=== PATIENT | male | born 1950 | race Caucasian/White ===

== ENCOUNTER 2019-09-04 14:57 | Observation (INO) ==
[2019-09-04] MEDS ORDERED: TRANEXAMIC ACID 1,000 MG/10 ML VIAL IV ONE (15:28)
[2019-09-04 15:53] LABS: POC Blood Urea Nitrogen 29 mg/dl (8-23); POC CO2 24 mmol/L (22-30); POC Calcium, Ionized 1.15 mmol/L (1.16-1.32); POC Chloride 96 mmol/L (96-108); POC Creatinine 1.7 mg/dl (0.7-1.2); POC Glucose, Random 200 mg/dL (70-105); POC Potassium 4.3 mmol/L (3.3-5.1); POC Sodium 131 mmol/L (133-145)
[2019-09-04] MEDS ORDERED: 0.9 % SODIUM CHLORIDE 1,000 ML IV ONE (16:24)
[2019-09-04 16:37] LABS: Basophils # (Auto) 0.01 K/mcL (0.00-0.30); Basophils % (Auto) 0.1 % (0.0-2.0); Eosinophils # (Auto) 0 K/mcL (0.00-0.70); Eosinophils % (Auto) 0 % (0.0-7.0); Granulocytes % (Auto) 96.6 % (38.0-78.0); Hematocrit 36.5 % (40.1-51.0); Hemoglobin 12.4 g/dL (13.7-17.5); Lymphocytes # (Auto) 0.25 K/mcL (1.50-4.80); Mean Cell Volume 90.6 fL (80.0-100.0); Mean Platelet Volume 9.2 fL (7.4-10.4); Monocytes # (Auto) 0.16 K/mcL (0.10-0.90); Monocytes % (Auto) 1.3 % (1.0-12.0); Platelet Count 270 K/mcL (140-440); RBC 4.03 M/mcL (4.63-6.08); WBC 12.3 K/mcL (4.50-11.00)
[2019-09-04 16:52] LABS: ALT/SGPT 14 U/l (0-40); AST/SGOT 14 U/l (0-37); Albumin 3.9 gm/dL (3.2-5.2); Albumin/Globulin Ratio 1.7 (1.0-2.3); Alkaline Phosphatase 63 U/L (39-117); Bilirubin,Total 0.3 mg/dL (0.0-1.0); Calcium 8.8 mg/dl (8.6-10.4); Carbon Dioxide 22 mmol/L (22-30); Globulin 2.3 gm/dL (2.2-3.7); Glomerular Filtration Rate 44; Glucose 211 mg/dL (70-105)
[2019-09-04 16:55] LABS: Blood Urea Nitrogen 29 mg/dl (8-23); Chloride 95 mmol/L (96-108)
--- NOTE | 2019-09-04 17:00 | Emergency Department Note ---
General Adult HPI - General Chief complaint: Bleeding Other Stated complaint: bleeding from penis/cath Time Seen by Provider: 09/04/19 15:05 Source: patient Mode of arrival: wheelchair Limitations: no limitations - History of Present Illness HPI Narrative: 69-year-old male had surgery today with Dr. Robles. He returns for penile bleeding after transurethral bladder cancer removal. Please see Dr. Robles's note for complete course. He is not on a blood thinner - Related Data Home Medications Medication Instructions Recorded Confirmed coenzyme Q10 10 mg capsule 10 mg PO QDAY cap 08/18/19 09/04/19 levothyroxine 175 mcg tablet 175 mcg PO QDAY 08/18/19 09/04/19 magnesium oxide 200 mg PO QDAY 08/18/19 09/04/19 olmesartan 40 mg tablet 40 mg PO QDAY 08/18/19 09/04/19 Previous Rx's Medication Instructions Recorded Cephalexin [Keflex] 500 mg PO QID #10 cap 09/04/19 HYDROcodone/APAP 5/325MG [[place] 1 tab PO Q6HP PRN #15 tab 09/04/19 5-325Mg] Allergies Allergy/AdvReac Type Severity Reaction Status Date / Time No Known Drug Allergies Allergy Verified 09/04/19 15:01 Past Medical History - Past Medical History Attestation: Yes: The following information was validated with the patient. PMFSH Narrative: Family History (Last Reviewed 08/27/19 @ 11:28 by Erika Freitas RN) Other Cancer HTN (hypertension) Heart attack Prostate cancer Medical History (Last Reviewed 08/27/19 @ 11:28 by Erika Freitas RN) Hydronephrosis (Chronic) Sleep apnea (Chronic) Hypertension (Chronic) Hypothyroidism (Chronic) Goiter (Chronic) Malignant tumor of thyroid gland (Chronic) Blood in urine (Chronic) Tachycardia (Chronic) Benign prostatic hyperplasia (Chronic) Metabolic syndrome X (Chronic) Renal insufficiency (Chronic) Benny hematuria (Chronic) Mass (Chronic) Past Surgical History (Last Reviewed 08/27/19 @ 11:28 by Erika Freitas RN) History of colonoscopy (Chronic ~2018) History of thyroid surgery (Chronic ~2006) Source: old records reviewed Surgical history ED: Reports: other (Bladder cancer removal) - Social History smoking status: Never smoker Physical Exam Patient is alert oriented normocephalic. Heart is regular rate and rhythm no murmur appreciated. Lungs are clear to auscultation bilaterally without wheezes rales rhonchi or respiratory distress. He has a Jarvis catheter in place with reddish urine in the tube. Bladder irrigation is ongoing Limitations: no limitations Course Vital Signs Temperature 97.7 F 09/04/19 14:57 Pulse Rate 101 H 09/04/19 14:57 Respiratory Rate 16 09/04/19 14:57 Blood Pressure 178/91 09/04/19 14:57 Pulse Oximetry (%) 98 09/04/19 14:57 Temperature 97.7 F 09/04/19 14:57 Pulse Rate 102 H 09/04/19 16:36 Respiratory Rate 16 09/04/19 14:57 Blood Pressure 165/92 09/04/19 16:31 Pulse Oximetry (%) 99 09/04/19 16:36 Medical Decision Making - Lab Data Lab results reviewed: Yes I reviewed the patient's lab results. Result diagrams: 09/04/19 15:47 09/04/19 15:47 Lab Results 09/04/19 09/04/19 Range/Units 15:47 15:47 WBC 12.3 H (4.50-11.00) K/mcL RBC 4.03 L (4.63-6.08) M/mcL Hgb 12.4 L (13.7-17.5) g/dL Hct 36.5 L (40.1-51.0) % POC Hct 38.0 L (41.0-55.0) % MCV 90.6 (80.0-100.0) fL MCH 30.8 (26.0-34.0) pg MCHC 34.0 (31.0-36.0) g/dL RDW 12.0 (11.5-14.5) % Plt Count 270 (140-440) K/mcL MPV 9.2 (7.4-10.4) fL Gran % 96.6 H (38.0-78.0) % Lymph % (Auto) 2.0 L (15.5-49.0) % [place] % (Auto) 1.3 (1.0-12.0) % Eos % (Auto) 0 (0.0-7.0) % Baso % (Auto) 0.1 (0.0-2.0) % Gran # 11.83 H (1.80-8.00) K/mcL Lymph # (Auto) 0.25 L (1.50-4.80) K/mcL [place] # (Auto) 0.16 (0.10-0.90) K/mcL Eos # (Auto) 0 (0.00-0.70) K/mcL Baso # (Auto) 0.01 (0.00-0.30) K/mcL POC Sodium 131 L (133-145) mmol/L Sodium 131 L (133-145) mmol/L POC Potassium 4.3 (3.3-5.1) mmol/L Potassium 4.6 (3.3-5.1) mmol/L POC Chloride 96 (96-108) mmol/L Chloride 95 L (96-108) mmol/L Carbon Dioxide 22 (22-30) mmol/L POC Total CO2 24 (22-30) mmol/L Anion Gap 14.0 (8-16) POC BUN 29 H (8-23) mg/dl BUN 29 H (8-23) mg/dl Creatinine 1.6 H (0.7-1.2) mg/dl POC Creatinine 1.7 H (0.7-1.2) mg/dl GFR Calculation 44 Glucose 211 H (70-105) mg/dL POC Glucose 200 H (70-105) mg/dL Calcium 8.8 (8.6-10.4) mg/dl POC WB Ioniz Calcium 1.15 L (1.16-1.32) mmol/L Total Bilirubin 0.3 (0.0-1.0) mg/dL AST 14 (0-37) U/l ALT 14 (0-40) U/l Alkaline Phosphatase 63 (39-117) U/L Total Protein 6.2 (5.9-8.4) gm/dL Albumin 3.9 (3.2-5.2) gm/dL Globulin 2.3 (2.2-3.7) gm/dL Albumin/Globulin Ratio 1.7 (1.0-2.3) Disposition Pt seen by CENTRAL SERVICES TECH/PA only: No Clinical Impression: Postoperative hemorrhage Qualifiers: Surgical complication system/body Area: genitourinary Procedure type: genitourinary Qualified Code(s): N99.820 - Postprocedural hemorrhage of a genitourinary system organ or structure following a genitourinary system procedure Summary: Dr. Robles was notified when the patient come to the ER and so he had already seen the patient by the time I came in the room. He asked for some tranexamic acid which was ordered. Labs are ordered as above. I briefly reviewed the situation and examined the patient Dr. Robles evaluated the patient and irrigated his bladder. He decided to admit the patient for observation. He will write orders Disposition: Xfer As Outpt/Obs ([facility]) Condition: Fair Referrals: No,PCP [Primary Care Provider] - Santana Robles MD [Physician] -
--- NOTE | 2019-09-04 17:40 | History and Physical Report ---
DATE OF ADMISSION: 09/04/2019 HISTORY OF PRESENT ILLNESS: Mr. Esqueda is a 69-year-old gentleman who has bladder cancer. He was taken to the operating room today and a TURBT was performed with mitomycin. Postoperatively, he was having bleeding, but was sent home from same day surgery. He continued to clot off his catheter and he went to the emergency room. While in the emergency room, I met him and had to irrigate his catheter. He is still having bleeding despite tranexamic acid and will admit to the hospital for overnight observation. PAST MEDICAL HISTORY: Significant for hydronephrosis, hypertension, hypothyroidism, tachycardia, and BPH. PAST SURGICAL HISTORY: Colonoscopy, thyroid surgery, and TURBT. FAMILY HISTORY: Cancer, hypertension, and prostate cancer. SOCIAL HISTORY: , works as a technical trainer, never smoked. He lives with his and is traveling by . MEDICATIONS: Synthroid, magnesium oxide, and olmesartan. ALLERGIES: NONE. REVIEW OF SYSTEMS: CARDIAC: Denies any chest pain. RESPIRATORY: No wheezing, coughing, or asthma. PSYCHOLOGICAL: No depression or mood swings. The rest of a 12-point review of systems is negative. PHYSICAL EXAMINATION: GENERAL: This is a pleasant gentleman, in slight distress. VITAL SIGNS: As listed per intake notes. HEENT: Atraumatic, normocephalic. Extraocular movements are intact. HEART: Regular rate and rhythm. LUNGS: Clear to auscultation. ABDOMEN: Soft, nontender. GENITOURINARY: Scrotum without lesion. Epididymides without cysts. Testes normal size and consistency. Penis is circumcised. Prostate 30 grams, smooth. Seminal vesicles without tenderness. Anus and perineum are normal. Rectum has good sphincter tone. LYMPHATIC: No adenopathy in neck or groin. SKIN: Without rashes, lesions. PSYCHOLOGICAL: Alert and oriented x3. IMPRESSION: The patient with postoperative bleed from bladder cancer. I was able to clear his urine with irrigation, but because of the distance that he lives and not having a home in this area, I feel that it would be better to watch him overnight for observation. We started him on tranexamic acid and also continuous bladder irrigation. I will reevaluate him in the morning. Hematocrit was 38. I have gone over this with he and his and they understand. Shaq Job ID: [id number] Doc ID: [id number] Santana Robles MD
[2019-09-04] MEDS: DEXTROSE 5%-1/2NS W/20MEQ KCL 1,000 ML IV SCH (19:43)
[2019-09-04] MEDS: HYDROcodone/APAP 5/325MG TABLET PO PRN (20:44)
[2019-09-04] MEDS: CEPHALEXIN 500 MG CAPSULE PO SCH (20:44)
[2019-09-04] MEDS: 0.9 % SODIUM CHLORIDE 10 ML SYRINGE IV SCH (20:45)
[2019-09-05] MEDS: TRANEXAMIC ACID 1,000 MG/10 ML VIAL IV SCH ×3 (00:13→11:49)
[2019-09-05 01:17] LABS: Hematocrit 29.5 % (40.1-51.0); Hemoglobin 10.2 g/dL (13.7-17.5); Mean Cell Volume 89.9 fL (80.0-100.0); Mean Corpuscular HGB Conc 34.6 g/dL (31.0-36.0); Mean Platelet Volume 8.9 fL (7.4-10.4); Platelet Count 262 K/mcL (140-440); RBC 3.28 M/mcL (4.63-6.08); Red Cell Distribution Width 11.9 % (11.5-14.5); WBC 13.4 K/mcL (4.50-11.00)
[2019-09-05] MEDS: HYDROcodone/APAP 5/325MG TABLET PO PRN (02:20)
[2019-09-05] MEDS: DEXTROSE 5%-1/2NS W/20MEQ KCL 1,000 ML IV SCH ×2 (04:00→11:38)
[2019-09-05] MEDS: 0.9 % SODIUM CHLORIDE 10 ML SYRINGE IV SCH ×3 (06:43→22:11)
[2019-09-05] MEDS ORDERED: OPIUM/BELLADONNA ALKALOIDS 60 MG SUPP.RECT PR ONE ×2 (06:52→07:03)
[2019-09-05] MEDS ORDERED: LEVOTHYROXINE 100 MCG TABLET PO SCH (07:30)
[2019-09-05] MEDS ORDERED: LEVOTHYROXINE 75 MCG TABLET PO SCH (07:30)
[2019-09-05] MEDS ORDERED: OLMESARTAN MEDOXOMIL 20 MG TABLET PO SCH (09:00)
[2019-09-05] MEDS ORDERED: LEVOTHYROXINE SODIUM 175 MCG TABLET PO SCH (09:00)
[2019-09-05] MEDS ORDERED: UBIDECARENONE 10 MG PO SCH (09:00)
[2019-09-05] MEDS ORDERED: MAGNESIUM OXIDE 400 MG TABLET PO SCH (09:00)
[2019-09-05] MEDS ORDERED: SCOPOLAMINE 1 PATCH PATCH TOPICAL PRN (09:41)
[2019-09-05] MEDS ORDERED: IPRATROPIUM/ALBUTEROL 3 ML AMPUL.NEB NEB PRN ×2 (09:41→13:30)
[2019-09-05] MEDS: CEPHALEXIN 500 MG CAPSULE PO SCH ×2 (10:17→21:13)
--- NOTE | 2019-09-05 12:50 | General Surgery Progress Note ---
SUBJECTIVE Subjective Patient information: Note initiated : 09/05/19 at 12:48 pm Service Date, if different from initiated Date: [] Patient: Astrid Esqueda 69 y/o M admitted on 09/04/19 for bleeding from penis/cath. Chief Complaint: Blood in the urine Patient is still having blood in the urine. He has been on continuous bladder irrigation and there were clots still present. I feel at this point that conservative measures are not working and will take him back to the OR for fulguration of the bladder wall. I have gone over the procedure with him and complications and he understands. Surgery will be scheduled this afternoon. Constitutional Vitals: Vital Signs Temp Pulse Resp BP Pulse Ox 98.4 F 90 18 141/83 96 09/05/19 11:00 09/05/19 11:00 09/05/19 11:00 09/05/19 11:00 09/05/19 11:00 Period Temp Pulse Resp BP Sys/Cárdenas Pulse Ox Last 24 Hr 97.3 F-98.9 F 90-117 16-20 118-178/68-102 94-100 Intake and Output 09/04/19 09/05/19 09/05/19 21:59 05:59 13:59 Intake Total 18112 92046 954 Output Total 54176 12396 Balance 355 -1950 954 Weight 222 lb Intake & Output: Intake & Output 09/04/19 09/05/19 09/05/19 21:59 05:59 13:59 Intake Total 77967 76327 954 Output Total 31603 24728 Balance 355 -1950 954 Weight 222 lb Intake: IV 1000 1000 954 Sodium Chloride 0.9% 1,000 ml @ 1000 Wide Open IV BOLUS ONE Rx#: [id number] Dextrose 5%-1/2Ns W/20Meq KCl 1 1000 954 ,000 ml @ 125 mls/hr IV .Q8H ESTEFANIA Rx#:[id number] Oral 800 1600 CBI Fluid 98643 14435 Output: CBI Fluid 75335 43349 Other: Urine Appearance Hematuria Hematuria 3-way Urethral Hematuria Small Blood Clots Urine Color Bright Red [place] 3-way Urethral Bright Red Net CBI 380 350 A/P Time Spent With Patient Time: Total time spent is greater than 50% in coordination of care (as documented) at patient's floor/unit and/or counseling patient:
[2019-09-05] MEDS ORDERED: LACTATED RINGERS 1,000 ML IV SCH (13:30)
[2019-09-05] MEDS ORDERED: fentaNYL 100 MCG/2 ML VIAL IV PRN (13:30)
[2019-09-05] MEDS ORDERED: ceFAZolin 2 GM in DEXTROSE 5% IN WATER 50 ML IV SCH (13:30)
[2019-09-05] MEDS ORDERED: ONDANSETRON 4 MG/2 ML VIAL IV PRN ×2 (13:30→14:56)
[2019-09-05] MEDS ORDERED: MIDAZOLAM 2 MG/2 ML VIAL IV ONE (13:37)
[2019-09-05] MEDS ORDERED: TRANEXAMIC ACID 1,000 MG/10 ML VIAL IV ONE ×3 (13:37→14:56)
[2019-09-05] MEDS ORDERED: ONDANSETRON 4 MG/2 ML VIAL IV ONE (13:37)
[2019-09-05] MEDS ORDERED: GLYCOPYRROLATE 0.2 MG/ML VIAL IV ONE (13:37)
[2019-09-05] MEDS ORDERED: KETAMINE 100 MG/ML ML IV ONE (13:37)
[2019-09-05] MEDS ORDERED: DEXAMETHASONE 10 MG/ML VIAL IV ONE (13:37)
[2019-09-05] MEDS ORDERED: PROPOFOL 200 MG/20 ML VIAL IV ONE (13:37)
[2019-09-05] MEDS ORDERED: LIDOCAINE HCL/PF 100 MG/5 ML SYRINGE IV ONE (13:37)
[2019-09-05] MEDS ORDERED: PHENYLEPHRINE 10 MG/ML VIAL IV ONE (13:37)
[2019-09-05] MEDS ORDERED: fentaNYL 100 MCG/2 ML VIAL IV ONE (13:37)
--- NOTE | 2019-09-05 14:55 | Brief Operative Note ---
Brief Operative Note Date of procedure: 09/05/19 Pre-op diagnosis: hematuria Post-op diagnosis: same Procedure: clot evacuation, bladder fulguration Grafts/Implants: No Anesthesia: GLMA Findings: see note Surgeon: Santana Robles Condition: stable Disposition: PACU
[2019-09-05] MEDS ORDERED: HYDROcodone/APAP 5/325MG TABLET PO PRN (14:56)
[2019-09-05] MEDS ORDERED: NACL 0.9% W/KCL 20MEQ 1,000 ML IV SCH (15:00)
[2019-09-05 15:09] LABS: POC Blood Urea Nitrogen 19 mg/dl (8-23); POC CO2 22 mmol/L (22-30); POC Calcium, Ionized 1.11 mmol/L (1.16-1.32); POC Chloride 90 mmol/L (96-108); POC Creatinine 1.5 mg/dl (0.7-1.2); POC Glucose, Random 188 mg/dL (70-105); POC Potassium 4.8 mmol/L (3.3-5.1); POC Sodium 122 mmol/L (133-145)
[2019-09-05] MEDS ORDERED: FUROSEMIDE 20 MG/2 ML VIAL IV ONE (15:35)
[2019-09-05] MEDS ORDERED: 0.9 % SODIUM CHLORIDE 250 ML IV SCH (15:45)
[2019-09-05] MEDS ORDERED: OXYBUTYNIN CHLORIDE 5 MG TABLET PO PRN (16:42)
[2019-09-05] MEDS: oxyCODONE/APAP 5/325MG TABLET PO PRN ×2 (17:03→17:25)
[2019-09-06] MEDS: 0.9 % SODIUM CHLORIDE 10 ML SYRINGE IV SCH (05:32)
[2019-09-06 06:54] LABS: Basophils # (Auto) 0.01 K/mcL (0.00-0.30); Basophils % (Auto) 0.1 % (0.0-2.0); Eosinophils # (Auto) 0.01 K/mcL (0.00-0.70); Eosinophils % (Auto) 0.1 % (0.0-7.0); Granulocytes % (Auto) 81.7 % (38.0-78.0); Hematocrit 29.9 % (40.1-51.0); Hemoglobin 10.8 g/dL (13.7-17.5); Lymphocytes # (Auto) 0.87 K/mcL (1.50-4.80); Lymphocytes % (Auto) 9.2 % (15.5-49.0); Mean Cell Volume 86.4 fL (80.0-100.0); Mean Corpuscular HGB Conc 36.1 g/dL (31.0-36.0); Mean Platelet Volume 9.3 fL (7.4-10.4); Monocytes # (Auto) 0.84 K/mcL (0.10-0.90); Monocytes % (Auto) 8.9 % (1.0-12.0); Platelet Count 211 K/mcL (140-440); RBC 3.46 M/mcL (4.63-6.08); Red Cell Distribution Width 12.2 % (11.5-14.5); WBC 9.4 K/mcL (4.50-11.00)
[2019-09-06] MEDS ORDERED: LEVOTHYROXINE 100 MCG TABLET PO SCH (07:30)
[2019-09-06] MEDS: CEPHALEXIN 500 MG CAPSULE PO SCH (08:20)
[2019-09-06] MEDS ORDERED: MAGNESIUM OXIDE 400 MG TABLET PO SCH (09:00)
[2019-09-06] MEDS ORDERED: OLMESARTAN MEDOXOMIL 20 MG TABLET PO SCH (09:00)
[2019-09-06] MEDS ORDERED: UBIDECARENONE 10 MG PO SCH (09:00)
--- NOTE | 2019-09-06 09:13 | Discharge Plan ---
Discharge Plan Patient/Caregiver Discharge Instructions Activity: increase activity as tolerated Diet: Regular Diet Activity Restrictions/Additional Instructions: Remove catheter on Sunday morning. If there is a problem over the weekend call Dr. Robles's office [phone] and leave a message. Prescriptions: No Action coenzyme Q10 [Co Q-10] 10 mg capsule 10 mg PO QDAY RF: 0 magnesium oxide 200 mg magnesium tablet 200 mg PO QDAY RF: 0 olmesartan 40 mg tablet 40 mg PO QDAY RF: 0 levothyroxine [Synthroid] 175 mcg tablet 175 mcg PO QDAY RF: 0 cephalexin 500 MG capsule 500 mg PO QID Qty: 10 RF: 0 hydrocodone-acetaminophen 1 TAB tablet 1 tab PO Q6HP PRN (Reason: Pain) Qty: 15 RF: 0 5-hydroxytryptophan (5-HTP) 100 MG capsule 1 - 2 mg PO DAILYP PRN (Reason: Insomnia) RF: 0 jjhwwgvu-[id number]-[id number]-C-josy-bosw 1 EACH tablet 1 each PO DAILY RF: 0 omega 0-ypc-fss-fish oil 1,000 MG capsule 1,000 mg PO DAILY RF: 0 cholecalciferol (vitamin D3) 1,250 MCG capsule 1,250 mcg PO DAILY RF: 0 Follow Up Plan Follow up with: No,PCP [Primary Care Provider] - Santana Robles MD [Physician] - Patient Disposition: Home, Self-Care Prognosis: Good Overall status at discharge: patient is back to baseline Discharge Date/Time: 09/06/19 09:12 Discharge Orders: Discharge Order (Routine); Ordered 09/06/19 Ordered By: Santana Robles
--- NOTE | 2019-09-06 09:13 | General Surgery Progress Note ---
SUBJECTIVE Subjective Patient information: Note initiated : 09/06/19 at 9:13 am Service Date, if different from initiated Date: [] Patient: Astrid Esqueda 69 y/o M admitted on 09/04/19 for bleeding from penis/cath. Chief Complaint: Patient is improved. Did tolerate 2 units of blood. His hematocrit is 30. Pathology is pending. We will follow-up with his pathology and he can remove the catheter on Sunday morning. Constitutional Vitals: Vital Signs Temp Pulse Resp BP Pulse Ox 98.9 F 76 16 119/75 96 09/06/19 07:49 09/06/19 07:49 09/06/19 07:49 09/06/19 07:49 09/06/19 07:49 Period Temp Pulse Resp BP Sys/Cárdenas Pulse Ox Last 24 Hr 97.3 F-98.9 F 71-96 12-18 94-169/53-99 92-100 Intake and Output 09/05/19 09/06/19 09/06/19 21:59 05:59 13:59 Intake Total 2731 555 800 Output Total 2450 3375 Balance 281 -2820 800 Weight 232 lb 12.8 oz Intake & Output: Intake & Output 09/05/19 09/06/19 09/06/19 21:59 05:59 13:59 Intake Total 2731 555 800 Output Total 2450 3375 Balance 281 -2820 800 Weight 232 lb 12.8 oz Intake: IV 721 75 Sodium Chloride 0.9% 250 ml @ 75 20 mls/hr IV .[id number] ESTEFANIA Rx#: [id number] Dextrose 5%-1/2Ns W/20Meq KCl 1 527 ,000 ml @ 125 mls/hr IV .Q8H ESTEFANIA Rx#:[id number] NaCl 0.9% W/KCl 20Meq 1000ML 1, 194 0 000 ml @ 50 mls/hr IV .Q20H ESTEFANIA Rx#:[id number] Oral 150 800 Blood Product 310 330 IV - Manual Only 1700 Output: Urine Catheter Amount 2450 2275 Void Amount 1100 Other: Meal Dinner turkey sandwich Percent of Meal Consumed 50% 50% Feeding Ability Independent Independent Urine Appearance Clear Clear Clear Uretheral (Jarvis) Clear Clear Urine Color [place]raw Uretheral (Jarvis) [place] Urine Odor Normal Normal Normal A/P Time Spent With Patient Time: Total time spent is greater than 50% in coordination of care (as documented) at patient's floor/unit and/or counseling patient:
--- NOTE | 2019-09-08 09:22 | Operative Note ---
DATE OF OPERATION: 09/05/2019 PREOPERATIVE DIAGNOSIS: Hematuria. POSTOPERATIVE DIAGNOSIS: Hematuria with clot retention. PROCEDURE: Fulguration of the bladder. SURGEON: Santana Robles M.D. INDICATION: The patient is a 69-year-old gentleman with a large bladder tumor who underwent resection and fulguration. Postoperatively, he did have bleeding and was taken back to the OR. PROCEDURE: The patient was identified and consent was signed. He was given general anesthesia, placed in lithotomy position, prepped and draped in a standard fashion. Cystourethroscopy showed normal-appearing urethra. Prostate was normal. In entering the bladder, there was a large amount of clots. We irrigated copiously with the [employer] evacuator and finally we were able to remove some of the clots. There was organized clot in the floor of the bladder and we had to use a loop to resect this. I was finally able to get down to the bladder and at this point there was no perforation noted. No active bleeding, but there were areas of oozing. The decision was made to cauterize the entire trigone, and this took care of the bleeding. The area of fulguration was approximately 6 x 6 cm. We then observed for 5 minutes. There was no more bleeding. A 20-Urdu Jarvis catheter was placed and this drained clear urine. He was then awoken and taken to the recovery room in stable condition. RICKEY:[email or web address] Job ID: [id number] Doc ID: [id number] Santana Robles MD
--- NOTE | 2019-09-08 10:29 | Discharge Summary ---
DATE OF ADMISSION: 09/04/2019 DATE OF DISCHARGE: 09/06/2019 DATE OF ADMISSION: 09/04/2019 DATE OF DISCHARGE: 09/06/2019 REASON FOR ADMISSION: Hematuria. PROCEDURE DONE: Bladder irrigation and removal of bladder clots. HISTORY OF PRESENT ILLNESS: The patient is a 69-year-old gentleman who earlier upon the day of admission underwent a TURBT. Afterwards, he did have clots and was seen in the emergency room. I irrigated his bladder and then admitted him to observation. HOSPITAL COURSE: The patient did continue to have bleeding. We irrigated the bladder copiously and did notice that his hematocrit decreased to 30. The decision was made to take him to the OR where multiple clots were removed, but there was also organized clot at the place of resection, and we were able to remove all this organized tissue. The bladder floor was fulgurated, and I was pleased with the overall appearance. Overnight he had clear urine. He is ready for discharge to home. His pain is controlled. Discharge medications include Keflex which he has a prescription for and also [place] for pain. He will remove the catheter in 2 days. We will plan to follow up with his pathology. He did receive 2 units of packed red blood cells for a hematocrit of 22. His sodium had decreased to 122, but he was given Lasix and appears to be doing well. We will plan to follow up as outlined. Fazal Job ID: [id number] Doc ID: [id number] Santana Robles MD
== END 2019-09-06 10:55 | disposition home or self-care (01) ==
LOC: ED 14:57 → MEDSUR 14:57 → UNDODISOB 09-06 09:12